=== PATIENT | female | born 1985 | race American Indian/Alaskan Native ===

== ENCOUNTER → 2018-05-31 | Outpatient (CLI) | payer OTHER ==
[~2018-05-31] MED LIST: IBUP600 PO; Lamictal200 MG PO; VENL150ER
[2018-06-02 14:10] LABS: HPV 16 Negative (Negative); HPV 18 Negative (Negative); HPV OTHER HR TYPES Positive (Negative)
[2018-06-03 22:10] LABS: CHLAMYDIA TRACHOMATIS, NAA Negative (Negative); NEISSERIA GONORRHOEAE, NAA Negative (Negative)
== END | disposition home or self-care (01) ==
LOC: LAB SHORT 16:14 → LAB 16:14
PROVIDERS: Obstetrics & Gynecology
DX: Z36.89 Encounter for other specified antenatal screening (principal)
CPT/HCPCS: 87081; 87653

== ENCOUNTER 2018-06-23 14:30 | Inpatient (IN) | payer OTHER ==
[~2018-06-23] VITALS: Ht 160 cm; Wt 83.6 kg
[2018-06-23 17:18] LABS: BASOPHILS ABSOLUTE AUTO 0.03 K/mm3 (0.00-0.23); BASOPHILS PERCENT AUTO 0 % (0-2); EOSINOPHILS ABSOLUTE AUTO 0.06 K/mm3 (0.00-0.68); EOSINOPHILS PERCENT AUTO 0 % (0-6); Hematocrit 33.1 % (33.0-51.0); Hemoglobin 10.4 g/dL (11.5-16.0); IMMATURE GRAN ABSOLUTE AUTO 0.11 K/mm3 (0.00-0.10); IMMATURE GRAN PERCENT AUTO 1 % (0-1); LYMPHOCYTES ABSOLUTE AUTO 1.46 K/mm3 (0.84-5.20); LYMPHOCYTES PERCENT AUTO 9 % (21-46); MONOCYTES ABSOLUTE AUTO 1.03 K/mm3 (0.16-1.47); MONOCYTES PERCENT AUTO 6 % (4-13); Mean Corpuscular HGB 25.7 pg (26.0-34.0); Mean Corpuscular HGB Conc 31.4 g/dL (31.5-36.5); Mean Corpuscular Volume 82 fL (80-100); Mean Platelet Volume 11.3 fL (9.1-12.4); NEUTROPHILS ABSOLUTE AUTO 13.96 K/mm3 (1.96-9.15); NEUTROPHILS PERCENT AUTO 84 % (41-73); NRBC ABSOLUTE 0.02 K/mm3 (0.00-0.02); NRBC Auto 0.1 /100 WBC (0.0-0.2); Platelet Count 305 K/mm3 (150-400); RDW Coefficient Variation 15.4 % (11.7-14.2); RDW Standard Deviation 45.2 fL (35.1-46.3); Red Blood Cell Count 4.04 M/mm3 (3.80-5.20); White Blood Cell Count 16.65 K/mm3 (4.00-11.30)
[2018-06-24 00:11] LABS: Gentamicin, Peak 2.1 ug/mL (4.0-8.0)
[2018-06-24 01:07] LABS: PCO2 Cord - Arterial 68.4 mmHg (40-50); pH Cord - Arterial 7.11 (7.28-7.35)
[2018-06-24 01:08] LABS: PCO2 Cord - Venous 52 mmHg (40-50); PO2 Cord - Venous 13.1 mmHg (28-32); pH Umbilical Cord - Venous 7.22 (7.26-7.35)
[2018-06-24 17:18] LABS: Hematocrit 30.3 % (33.0-51.0); Hemoglobin 9.7 g/dL (11.5-16.0); Mean Corpuscular HGB 26.6 pg (26.0-34.0); Mean Corpuscular Volume 83 fL (80-100); Mean Platelet Volume 10.7 fL (9.1-12.4); NRBC ABSOLUTE 0.02 K/mm3 (0.00-0.02); NRBC Auto 0.1 /100 WBC (0.0-0.2); Platelet Count 316 K/mm3 (150-400); RDW Coefficient Variation 15.9 % (11.7-14.2); RDW Standard Deviation 47.1 fL (35.1-46.3); Red Blood Cell Count 3.65 M/mm3 (3.80-5.20); White Blood Cell Count 21.81 K/mm3 (4.00-11.30)
[2018-06-25 07:26] LABS: Hematocrit 28.3 % (33.0-51.0); Hemoglobin 8.8 g/dL (11.5-16.0); Mean Corpuscular HGB 25.7 pg (26.0-34.0); Mean Corpuscular HGB Conc 31.1 g/dL (31.5-36.5); Mean Corpuscular Volume 83 fL (80-100); Mean Platelet Volume 10.2 fL (9.1-12.4); NRBC ABSOLUTE 0.02 K/mm3 (0.00-0.02); NRBC Auto 0.1 /100 WBC (0.0-0.2); Platelet Count 309 K/mm3 (150-400); RDW Standard Deviation 47.3 fL (35.1-46.3); Red Blood Cell Count 3.43 M/mm3 (3.80-5.20); White Blood Cell Count 19.62 K/mm3 (4.00-11.30)
[2018-06-26] MEDS ORDERED: Percocet 5-3251 EACH PO (10:24)
[2018-06-26] MEDS ORDERED: DOCU100 PO (10:24)
[2018-06-26] MEDS ORDERED: IBUP800 (10:24)
== END 2018-06-26 12:30 | disposition home or self-care (01) | DRG 765 ==
LOC: OBS 14:30 → BC 14:35 → OBS 18:35 → BC 18:37
PROVIDERS: Obstetrics & Gynecology
PROC: 0UT70ZZ Resection of Bilateral Fallopian Tubes, Open Approach (ICD-10-PCS; 2018-06-24)
PROC: 10907ZC Drainage of Amniotic Fluid, Therapeutic from Products of Conception, Via Natural or Artificial Opening (ICD-10-PCS; 2018-06-24)
PROC: 3E0R3BZ Introduction of Anesthetic Agent into Spinal Canal, Percutaneous Approach (ICD-10-PCS; 2018-06-24)
PROC: 10H07YZ Insertion of Other Device into Products of Conception, Via Natural or Artificial Opening (ICD-10-PCS; 2018-06-24)
PROC: 10D00Z1 Extraction of Products of Conception, Low, Open Approach (ICD-10-PCS; principal; 2018-06-24 00:30)
DX: O76 Abnormality in fetal heart rate and rhythm complicating labor and delivery (principal); O41.1230 Chorioamnionitis, third trimester, not applicable or unspecified; Z3A.39 39 weeks gestation of pregnancy; Z37.0 Single live birth; O77.0 Labor and delivery complicated by meconium in amniotic fluid; O99.334 Smoking (tobacco) complicating childbirth; F17.200 Nicotine dependence, unspecified, uncomplicated
CPT/HCPCS: 36415; 51702; 59025; 76819; 80170; 81003; 82565; 82803; 82947; 85025; 85027; 86850; 86900; 86901; 87081; 99214; J0290; J0690; J1580; J1885; J2590; J2765; J7030; J7120

== ENCOUNTER → 2021-07-30 | Outpatient (CLI) | payer OTHER ==
[~2021-07-30] MED LIST changes: +DOCU100 PO; +IBUP800; +Percocet 5-3251 EACH PO
[2021-07-30 15:02] LABS: BASOPHILS ABSOLUTE AUTO 0.04 K/mm3 (0.00-0.23); BASOPHILS PERCENT AUTO 1 % (0-2); EOSINOPHILS ABSOLUTE AUTO 0.12 K/mm3 (0.00-0.68); EOSINOPHILS PERCENT AUTO 2 % (0-6); Hematocrit 44.7 % (33.0-51.0); Hemoglobin 15.1 g/dL (11.5-16.0); IMMATURE GRAN ABSOLUTE AUTO 0.05 K/mm3 (0.00-0.10); IMMATURE GRAN PERCENT AUTO 1 % (0-1); LYMPHOCYTES ABSOLUTE AUTO 1.83 K/mm3 (0.84-5.20); LYMPHOCYTES PERCENT AUTO 24 % (21-46); MONOCYTES ABSOLUTE AUTO 0.58 K/mm3 (0.16-1.47); MONOCYTES PERCENT AUTO 8 % (4-13); Mean Corpuscular HGB 30.3 pg (26.0-34.0); Mean Corpuscular HGB Conc 33.8 g/dL (31.5-36.5); Mean Corpuscular Volume 90 fL (80-100); Mean Platelet Volume 10.6 fL (9.1-12.4); NEUTROPHILS ABSOLUTE AUTO 5.09 K/mm3 (1.96-9.15); NEUTROPHILS PERCENT AUTO 66 % (41-73); Platelet Count 294 K/mm3 (150-400); RDW Coefficient Variation 13.6 % (11.7-14.2); Red Blood Cell Count 4.98 M/mm3 (3.80-5.20); White Blood Cell Count 7.71 K/mm3 (4.00-11.30)
[2021-07-30 15:22] LABS: Alanine Aminotransfer (ALT/SGP 86 U/L (12-78); Albumin, Blood 4.2 g/dL (3.4-5.0); Albumin/Globulin Ratio 0.9 (0.8-1.8); Alk Phos 180 U/L (40-126); Anion Gap 26 mmol/L (6-16); Aspartate Aminotrans (AST/SGOT 41 U/L (12-37); Bilirubin, Total 0.6 mg/dL (0.1-1.0); Blood Urea Nitrogen 8 mg/dL (8-24); Bun/Creatinine Ratio 7.7 (12.0-20.0); CO2, Blood 10 mmol/L (21-32); Calcium, Blood 8.7 mg/dL (8.5-10.1); Chloride, Blood 99 mmol/L (98-108); Creatinine, Blood 1.04 mg/dL (0.40-1.00); Globulin, Blood 4.6 g/dL (2.2-4.0); Glomerular Filtration Rate >60 (60-); Glucose, Blood 425 mg/dL (70-99); Potassium, Blood 3.9 mmol/L (3.5-5.5); Sodium, Blood 135 mmol/L (136-145); Thyroid Stimulating Hormone 1.516 uIU/mL (0.360-4.800); Total Protein, Blood 8.8 g/dL (6.4-8.2)
== END | disposition home or self-care (01) ==
LOC: LAB SHORT 14:57 → LAB 14:57
PROVIDERS: Physician Assistant Medical
DX: R53.83 Other fatigue (principal); R63.1 Polydipsia
CPT/HCPCS: 80053; 83036; 84443; 85025

== ENCOUNTER 2021-08-01 16:47 | Inpatient (IN) | payer OTHER ==
[~2021-08-01] VITALS: Ht 160 cm; Wt 90.3 kg
[~2021-08-01 16:47] MED LIST changes: -HUMALOG KW100 UNIT/1 SC; -INSULANPEN SC; -PHOS-NAK PO
[2021-08-01 17:14] LABS: Hematocrit 43.5 % (33.0-51.0); Mean Corpuscular HGB 30.6 pg (26.0-34.0); Mean Corpuscular HGB Conc 32.2 g/dL (31.5-36.5); Mean Platelet Volume 11.3 fL (9.1-12.4); Platelet Count 235 K/mm3 (150-400); RDW Coefficient Variation 13.9 % (11.7-14.2); RDW Standard Deviation 49.2 fL (35.1-46.3); Red Blood Cell Count 4.57 M/mm3 (3.80-5.20); White Blood Cell Count 12.07 K/mm3 (4.00-11.30)
[2021-08-01 17:15] LABS: Bicarbonate Venous 7.7 mmol/L (24.0-30.0); PCO2 Venous 27.6 mmHg (38-42); PO2 Venous 53.2 mmHg (38-42); pH Blood Venous 6.95 (7.34-7.37)
[2021-08-01 17:42] LABS: Mean Corpuscular Volume 95 fL (80-100)
[2021-08-01 17:44] LABS: Alanine Aminotransfer (ALT/SGP 85 U/L (12-78); Albumin, Blood 3.5 g/dL (3.4-5.0); Albumin/Globulin Ratio 0.9 (0.8-1.8); Alk Phos 174 U/L (50-136); Anion Gap 17 mmol/L (6-16); Aspartate Aminotrans (AST/SGOT 54 U/L (12-37); Bilirubin, Total 0.5 mg/dL (0.1-1.0); Blood Urea Nitrogen 12 mg/dL (8-24); Bun/Creatinine Ratio 17.2 (12.0-20.0); CO2, Blood 6 mmol/L (21-32); Calcium, Blood 7.6 mg/dL (8.5-10.1); Chloride, Blood 112 mmol/L (98-108); Globulin, Blood 4.1 g/dL (2.2-4.0); Glomerular Filtration Rate >60 (60-); Glucose, Blood 628 mg/dL (70-99); Sodium, Blood 135 mmol/L (136-145); Total Protein, Blood 7.6 g/dL (6.4-8.2)
[2021-08-01 17:49] LABS: BAND PERCENT MAN 5 % (0-8); BASOPHILS PERCENT MAN 0 % (0-2); EOSINOPHILS PERCENT MAN 0 % (0-6); LYMPHOCYTES ABSOLUTE MAN 0.72 K/mm3 (0.84-5.20); LYMPHOCYTES PERCENT MAN 6 % (21-46); METAMYELOCYTE ABSOLUTE MAN 0.12 K/mm3 (0.00-0.00); METAMYELOCYTE PERCENT MAN 1 % (0-0); MONOCYTES ABSOLUTE MAN 0.36 K/mm3 (0.16-1.47); MONOCYTES PERCENT MAN 3 % (4-13); NEUTROPHILS ABSOLUTE MAN 10.86 K/mm3 (1.96-9.15); SEG NEUTROPHILS PERCENT MAN 85 % (41-73); TOTAL CELLS COUNTED 100
[2021-08-01 19:13] LABS: Source, Urine Clean Catch
[2021-08-01 19:47] LABS: Appearance, Urine Hazy (Clear); Bilirubin, Urine Neg (Neg); Blood, Urine 3+ (Neg); Color, Urine Yellow (P-Yellow); Glucose Qualitative, Urine 4+ (Neg); Ketones, Urine 4+ (Neg); Leukocyte Esterase, Urine 2+ (Neg); Nitrite, Urine Neg (Neg); Protein, Urine 2+ (Neg); Specific Gravity, Urine 1.015 (1.003-1.022); Urobilinogen, Urine NORM (Normal)
[2021-08-01 20:13] LABS: Bacteria Mod /hpf; Granular Casts 0-2 /lpf (0); Squamous Epithelial Cells Few /hpf (Few); Yeast/Fungi Urine Few /hpf
--- NOTE | 2021-08-01 21:18 | NUR ---
ADMISSION/SHIFT SUMMARY 2017- REPORT RECEIVED FROM RADHA MUNIZ FROM ER. PT TO BE ADMITTED INTO ICU-3. 2029- PT ADMITTED INTO ICU-3. INSULIN GTT RUNNING AT 5UNITS/HR AND 20MEQ POTASSIUM RUNNING PIGGYBACK AT @50ML/HR. NS @150ML/HR ON STANDBY. PT ALERT AND ORIENTED X4. DENIES ANY PAIN OR DISTRESS. RESPIRATIONS EVEN AND UNLABORED. ST ON MONITOR. SEE ADMISSION ASSESSMENT.
[2021-08-01 21:53] LABS: Anion Gap 14 mmol/L (6-16); Blood Urea Nitrogen 9 mg/dL (8-24); Bun/Creatinine Ratio 14.4 (12.0-20.0); CO2, Blood 8 mmol/L (21-32); Calcium, Blood 7.7 mg/dL (8.5-10.1); Chloride, Blood 116 mmol/L (98-108); Creatinine, Blood 0.63 mg/dL (0.40-1.00); Glomerular Filtration Rate >60 (60-); Glucose, Blood 364 mg/dL (70-99); Potassium, Blood 4.5 mmol/L (3.5-5.5); Sodium, Blood 138 mmol/L (136-145)
[2021-08-01 22:37] LABS: SARS-Cov-2 (COVID-19) PCR, MMC NEGATIVE (NEGATIVE)
--- NOTE | 2021-08-02 06:05 | NUR ---
SHIFT SUMMARY PT ALERT AND ORIENTED X4. NO ACUTE DISTRESS NOTED THROUGH THE SHIFT. PT REMAINS ON INSULIN DRIP @ 9UNITS/HR. BLOOD SUGARS RANGE BETWEEN 210-340. 210 IS THE LAST BLOOD SUGAR @ 0600. DR. HADDAD NOTIFIED WHEN BS <250 AND D51/2 NS @ 150ML/HR STARTED. PT VOIDED TWICE USING TOILET. NO ACUTE EVENTS DURING THIS SHIFT. REPORT TO BE GIVEN TO DAY SHIFT RN.
[2021-08-02 06:22] LABS: BASOPHILS ABSOLUTE AUTO 0.02 K/mm3 (0.00-0.23); BASOPHILS PERCENT AUTO 0 % (0-2); EOSINOPHILS ABSOLUTE AUTO 0.05 K/mm3 (0.00-0.68); EOSINOPHILS PERCENT AUTO 1 % (0-6); Hematocrit 36.3 % (33.0-51.0); Hemoglobin 12.5 g/dL (11.5-16.0); IMMATURE GRAN ABSOLUTE AUTO 0.27 K/mm3 (0.00-0.10); IMMATURE GRAN PERCENT AUTO 4 % (0-1); LYMPHOCYTES PERCENT AUTO 13 % (21-46); MONOCYTES ABSOLUTE AUTO 0.57 K/mm3 (0.16-1.47); MONOCYTES PERCENT AUTO 8 % (4-13); Mean Corpuscular HGB 30.8 pg (26.0-34.0); Mean Corpuscular HGB Conc 34.4 g/dL (31.5-36.5); Mean Platelet Volume 10.9 fL (9.1-12.4); NEUTROPHILS ABSOLUTE AUTO 5.65 K/mm3 (1.96-9.15); NEUTROPHILS PERCENT AUTO 75 % (41-73); Platelet Count 201 K/mm3 (150-400); RDW Coefficient Variation 14.1 % (11.7-14.2); RDW Standard Deviation 46.2 fL (35.1-46.3); Red Blood Cell Count 4.06 M/mm3 (3.80-5.20); White Blood Cell Count 7.56 K/mm3 (4.00-11.30)
[2021-08-02 06:23] LABS: Mean Corpuscular Volume 89 fL (80-100)
[2021-08-02 06:39] LABS: Anion Gap 11 mmol/L (6-16); Blood Urea Nitrogen 6 mg/dL (8-24); Bun/Creatinine Ratio 8.1 (12.0-20.0); CO2, Blood 10 mmol/L (21-32); Chloride, Blood 121 mmol/L (98-108); Creatinine, Blood 0.74 mg/dL (0.40-1.00); Glomerular Filtration Rate >60 (60-); Glucose, Blood 238 mg/dL (70-99); Potassium, Blood 2.6 mmol/L (3.5-5.5); Sodium, Blood 142 mmol/L (136-145)
--- NOTE | 2021-08-02 06:50 | NUR ---
DR. HADDAD NOTIFIED OF PT'S MORNING LABS, POTASSIUM (2.6). VERBAL OREDERS RECIEVED FOR 60MEQ IV KCL.
--- NOTE | 2021-08-02 08:03 | NUR ---
Assumed care of pt at 0700. Report received from Stacy MUNIZ. Insulin per flowsheet. Pt out of bed to use toilet. Tolerated activity well. Dr Lutz in to see patient. States plan to transition patient to subcutaneous insulin and downgrade to medical floor status later in day.
[2021-08-02 09:21] LABS: Anion Gap 10 mmol/L (6-16); Blood Urea Nitrogen 6 mg/dL (8-24); Bun/Creatinine Ratio 8.1 (12.0-20.0); CO2, Blood 12 mmol/L (21-32); Chloride, Blood 119 mmol/L (98-108); Creatinine, Blood 0.74 mg/dL (0.40-1.00); Glomerular Filtration Rate >60 (60-); Glucose, Blood 218 mg/dL (70-99); Potassium, Blood 2.7 mmol/L (3.5-5.5); Sodium, Blood 141 mmol/L (136-145)
[2021-08-02 12:51] LABS: Anion Gap 10 mmol/L (6-16); Blood Urea Nitrogen 5 mg/dL (8-24); Bun/Creatinine Ratio 7.4 (12.0-20.0); CO2, Blood 12 mmol/L (21-32); Chloride, Blood 118 mmol/L (98-108); Creatinine, Blood 0.68 mg/dL (0.40-1.00); Glomerular Filtration Rate >60 (60-); Glucose, Blood 195 mg/dL (70-99); Potassium, Blood 2.8 mmol/L (3.5-5.5); Sodium, Blood 140 mmol/L (136-145)
--- NOTE | 2021-08-02 13:55 | NUR ---
Call placed to Dr Lutz to discuss pt's hypokalemia and mention that previously ordered 60 meq KCl has finished. Plan to recheck potassium at 1415.
--- NOTE | 2021-08-02 18:01 | NUR ---
SUMMARY Pt is now medical floor status without telemetry. Plan for patient to transfer to room 333. Awaiting giving report to medical floor nurse Neuro: A&O x 4. Answers questions. Follows commands. Verbalizes needs. Pleasant and cooperative with care. Currently independent in room. Performing ADLs independently. Respiratory: Unremarkable. Lungs clear. Cardiac: Previously sinus rhythm per monitor, however pt no longer requires telemetry. GI: Tolerating ADA diet well. Inuslin drip at D5 1/2 NS turned off at 1700. : Ambulates to in room toilet. Skin: Unremarkable. Psychosocial: No apparent problems. Visited with daughter today. Telephone report given to Lynn MUNIZ. Pt to depart to medical floor soon.
[2021-08-02 22:10] LABS: Anion Gap 9 mmol/L (6-16); Blood Urea Nitrogen 8 mg/dL (8-24); Bun/Creatinine Ratio 10.8 (12.0-20.0); CO2, Blood 14 mmol/L (21-32); Calcium, Blood 7.9 mg/dL (8.5-10.1); Chloride, Blood 115 mmol/L (98-108); Creatinine, Blood 0.74 mg/dL (0.40-1.00); Glomerular Filtration Rate >60 (60-); Glucose, Blood 340 mg/dL (70-99); Potassium, Blood 3.2 mmol/L (3.5-5.5); Sodium, Blood 138 mmol/L (136-145)
--- NOTE | 2021-08-03 03:47 | NUR ---
SHIFT SUMMARY NO ACUTE CHANGES THIS EVENING. Q 4 CBG'S. GLUCOSE LEVELS ELEVATED IN THE 300'S. COVERED WITH CORRECTION SCALE. NO COMPLAINTS OF PAIN. PT DID REPORT HEARTBURN SO ORDER OBTAINED FOR MAALOX EXTRA STRENGTH WHICH WAS EFFECTIVE. PT AWAKE MUCH OF THE EVENING. REPORTING FATIGUE BUT OTHERWISE FEELING BETTER. VITAL SIGNS STABLE. WILL CONTINUE TO MONITOR.
[2021-08-03 07:21] LABS: Albumin, Blood 2.9 g/dL (3.4-5.0); Anion Gap 8 mmol/L (6-16); Blood Urea Nitrogen 5 mg/dL (8-24); Bun/Creatinine Ratio 7.5 (12.0-20.0); CO2, Blood 17 mmol/L (21-32); Calcium, Blood 8.1 mg/dL (8.5-10.1); Chloride, Blood 113 mmol/L (98-108); Creatinine, Blood 0.66 mg/dL (0.40-1.00); Glomerular Filtration Rate >60 (60-); Glucose, Blood 289 mg/dL (70-99); Magnesium, Blood 2.3 mg/dL (1.6-2.4); Potassium, Blood 3.1 mmol/L (3.5-5.5); Sodium, Blood 138 mmol/L (136-145)
[2021-08-03 07:24] LABS: Phosphorus, Blood 0.2 mg/dL (2.5-4.9)
--- NOTE | 2021-08-03 16:17 | NUR ---
SHIFT SUMMARY PATIENT DENIES PAIN, NAUSEA, AND SHORTNESS OF BREATH. PATIENT IS INDEPENDENT IN ROOM. PATIENT HAD A CRITICAL PHOS LEVEL THIS MORNING OF 0.2. DR. CARRASCO NOTIFIED AND A REDRAW WAS ORDERED. REDRAW WAS 0.3. P-PHOS IV WAS ORDERED. CONTINUED EDUCATION ABOUT GLUCOSE LEVELS AND INSULIN ADMINISTRATION. PATIENT IS MOTIVATED TO LEARN. REDRAW FOR PHOS WAS ORDERED, RESULT WAS 0.8. DR. ACRRASCO NOTIFIED AND P-PHOS IV AND NEUTRA-PHOS POWDER ORDERED. PATIENT IS EATING AND DRINKING WELL. PATIENT HAD A VISITOR IN THE AFTERNOON. PATIENT IS PLEASANT AND COOPERATIVE WITH CARE.
[2021-08-04 05:44] LABS: Albumin, Blood 2.9 g/dL (3.4-5.0); Anion Gap 7 mmol/L (6-16); Blood Urea Nitrogen 9 mg/dL (8-24); Bun/Creatinine Ratio 13.4 (12.0-20.0); CO2, Blood 23 mmol/L (21-32); Calcium, Blood 8.3 mg/dL (8.5-10.1); Chloride, Blood 106 mmol/L (98-108); Creatinine, Blood 0.67 mg/dL (0.40-1.00); Glomerular Filtration Rate >60 (60-); Glucose, Blood 363 mg/dL (70-99); Magnesium, Blood 2.4 mg/dL (1.6-2.4); Phosphorus, Blood 2.1 mg/dL (2.5-4.9); Potassium, Blood 3.1 mmol/L (3.5-5.5); Sodium, Blood 136 mmol/L (136-145)
--- NOTE | 2021-08-04 07:39 | NUR ---
SHIFT SUMMARY PT IS A 35 Y/O FEMALE, ADMITTED FOR DKA. SHE IS A&O X 4, INDEPENDENT IN THE ROOM. NO C/O ACUTE PAIN, NAUSEA OR SOB. VITAL SIGNS STABLE. PT'S BLOOD SUGAR WAS ELEVATED DURING THE NIGHT IN THE 300-400S. NO OTHER ACUTE CHANGES NOTED DURING THE NIGHT. REPORT GIVEN TO ONCOMING RN.
--- NOTE | 2021-08-04 16:56 | NUR ---
SHIFT SUMMARY PATIENT IS ALERT AND ORIENTED X4 AND COOPERATIVE WITH CARE. THE PATIENT IS INDEPENDENT TO THE BATHROOM. THEY CALL APPROPRIATELY. CBG LEVELS REMAINED IN THE 200'S THIS SHIFT. PATIENT HAS BEEN RECEIVING 15 UNITS TID OF HUMALOG, AND SLIDING SCALE FOR COVERAGE. NO ACUTE CHANGES THIS SHIFT. WILL CONTINUE TO MONITOR UNTIL SHIFT REPORT IS GIVEN TO ONCOMING NURSE.
[2021-08-05 05:20] LABS: Albumin, Blood 2.8 g/dL (3.4-5.0); Anion Gap 10 mmol/L (6-16); Blood Urea Nitrogen 6 mg/dL (8-24); Bun/Creatinine Ratio 10.2 (12.0-20.0); CO2, Blood 23 mmol/L (21-32); Calcium, Blood 8.2 mg/dL (8.5-10.1); Chloride, Blood 105 mmol/L (98-108); Creatinine, Blood 0.59 mg/dL (0.40-1.00); Glomerular Filtration Rate >60 (60-); Glucose, Blood 242 mg/dL (70-99); Magnesium, Blood 2.2 mg/dL (1.6-2.4); Phosphorus, Blood 3.5 mg/dL (2.5-4.9); Potassium, Blood 2.9 mmol/L (3.5-5.5); Sodium, Blood 138 mmol/L (136-145)
--- NOTE | 2021-08-05 05:30 | NUR ---
CABIN AGENT SUMMARY HAS BEEN RESTING QUIETLY WITH OCCASIONAL INTERRUPTION. CBG'S MONITORED AND COVERED WITH INSULIN - SEE MAR FOR DETAILS. NO C/O VOICED. CALL LIGHT IN REACH
--- NOTE | 2021-08-05 13:38 | NUR ---
Per chart review, pt. not yet medically stable for discharge. Anticipate needs at time of discharge to include: Assistance with insulin, potential F/U appt. with Dr. Montejo, hospital F/U within 5-7 days post discharge.
[2021-08-05 17:21] LABS: Magnesium, Blood 2.2 mg/dL (1.6-2.4); Phosphorus, Blood 3.1 mg/dL (2.5-4.9); Potassium, Blood 3.8 mmol/L (3.5-5.5)
--- NOTE | 2021-08-05 17:21 | NUR ---
SHIFT SUMMARY PATIENT DENIES PAIN, NAUSEA, AND SHORTNESS OF BREATH. PATIENT IS INDEPENDENT IN ROOM. PATIENT IS EATING AND DRINKING WELL. PATIENTS POTASSIUM WAS 2.9 THIS MORNING. ORDERS PLACED FOR PO POTASSIUM. LABS REDRAWN. POTASSIUM 3.8. PATIENT HAS BEEN SELF ADMINISTERING HER INSULIN THIS SHIFT WITH SUPERVISION. DID A LOT OF EDUCATION ABOUT INSULIN AND ADMINISTERING. PATIENT TOLERATED WELL. PATIENT DID WELL WITH ADMINISTRATION. PATIENT BLOOD SUGARS HAVE BEEN IN THE 200'S ALL SHIFT. PATIENT IS PLEASANT AND COOPERATIVE WITH CARE. PATIENT MOTIVATED TO GO HOME. PATIENT MOTHER VISITED IN AFTERNOON.
--- NOTE | 2021-08-06 05:40 | NUR ---
EXTENSION SPECIALIST SUMMARY NOW GIVING OWN INSULIN WITH SUPERVISION OF RN. HAS BEEN RESTING QUIETLY WITH FEW INTERRUPTIONS SINCE HS. NO C/O VOICED THIS SHIFT. AFFECT CHEERFUL WHEN CONVERSING WITH STAFF. CALL LIGHT IN REACH
[2021-08-06 07:07] LABS: Albumin, Blood 2.9 g/dL (3.4-5.0); Anion Gap 7 mmol/L (6-16); Blood Urea Nitrogen 8 mg/dL (8-24); Bun/Creatinine Ratio 12.5 (12.0-20.0); CO2, Blood 27 mmol/L (21-32); Calcium, Blood 8.8 mg/dL (8.5-10.1); Chloride, Blood 104 mmol/L (98-108); Creatinine, Blood 0.64 mg/dL (0.40-1.00); Glomerular Filtration Rate >60 (60-); Glucose, Blood 262 mg/dL (70-99); Magnesium, Blood 2.3 mg/dL (1.6-2.4); Phosphorus, Blood 4.2 mg/dL (2.5-4.9); Potassium, Blood 3.4 mmol/L (3.5-5.5); Sodium, Blood 138 mmol/L (136-145)
--- NOTE | 2021-08-06 10:11 | NUR ---
Per Dr. Meyers, pt. likely to D/C today. Pt. has strong family support system. Insurance to cover cost of medications. Pt. will be provided with [facility] direct traige line to contact if unable to obtain insulin for any reason. We have samples that could be provided if needed. Pt. scheduled for hospital F/U appt. on 08/12/21 at [address] Izaguirre. Pt. denied any concerns for safety at home or barriers to discharge. Provided with discharge letter and appt. time/date.
[2021-08-06] MEDS ORDERED: INSULANPEN SC (12:28)
[2021-08-06] MEDS ORDERED: HUMALOG KW100 UNIT/1 SC (12:29)
[2021-08-06] MEDS ORDERED: PHOS-NAK PO (12:34)
--- NOTE | 2021-08-06 13:14 | NUR ---
DISCHARGE PATIENT TRANSPORTED VIA WHEELCHAIR TO PRIVATE VEHICLE. DISCHARGE INSTRUCTIONS EXPLAINED TO PATIENT. PATIENT STATED UNDERSTANDING. INSULIN ADMINSTRATION EDUCATION DONE. PATIENT STATED UNDERSTANDING. PACKET SENT WITH PATIENT. BELONGINGS SENT WITH PATIENT. IV REMOVED WITHOUT DIFFICULTY. MEDICATIONS FAXED TO PERFERRED PHARMACY. [facility] SCHEDULED FOLLOW UP.
== END 2021-08-06 13:08 | disposition home or self-care (01) | DRG 637 ==
LOC: ER 16:47 → MEDS 19:45 → ICUE 19:45 → ICUW 19:45 → ICUE 20:32 → MEDS 08-02 18:40
PROVIDERS: Emergency Medicine; Family Medicine; Internal Medicine; Student in an Organized Health Care Education/Training Program; ADMIT Family Medicine
DX: E11.10 Type 2 diabetes mellitus with ketoacidosis without coma (principal); G93.41 Metabolic encephalopathy; E87.1 Hypo-osmolality and hyponatremia; N39.0 Urinary tract infection, site not specified; Z20.822 Contact with and (suspected) exposure to COVID-19; E83.39 Other disorders of phosphorus metabolism; E87.6 Hypokalemia; F41.9 Anxiety disorder, unspecified; E28.2 Polycystic ovarian syndrome; F17.210 Nicotine dependence, cigarettes, uncomplicated; J45.909 Unspecified asthma, uncomplicated; Z98.891 History of uterine scar from previous surgery; Z79.84 Long term (current) use of oral hypoglycemic drugs; Z79.899 Other long term (current) drug therapy
CPT/HCPCS: 36415; 71045; 80048; 80053; 80069; 81001; 82803; 82947; 83605; 83735; 84100; 84132; 84484; 85025; 85379; 87040; 87086; 93005; 93010; 96365; 96366; 96375; 99285-25; A9270; J0696; J1650; J1815; J3480; J7030; J7042; J7050; J7060; J7120; U0004

== ENCOUNTER → 2021-08-01 | Outpatient (CLI) | payer OTHER ==
[~2021-08-01] MED LIST changes: +HUMALOG KW100 UNIT/1 SC; +INSULANPEN SC; +PHOS-NAK PO; -VENL150ER; +VENL150ER PO
[2021-08-01 16:04] LABS: Alanine Aminotransfer (ALT/SGP 104 U/L (12-78); Albumin, Blood 4.4 g/dL (3.4-5.0); Albumin/Globulin Ratio 0.9 (0.8-1.8); Alk Phos 207 U/L (40-126); Aspartate Aminotrans (AST/SGOT 59 U/L (12-37); Bilirubin, Total 0.6 mg/dL (0.1-1.0); Blood Urea Nitrogen 12 mg/dL (8-24); Calcium, Blood 8.6 mg/dL (8.5-10.1); Chloride, Blood 97 mmol/L (98-108); Globulin, Blood 4.9 g/dL (2.2-4.0); Glomerular Filtration Rate 40 (60-); Potassium, Blood 3.7 mmol/L (3.5-5.5); Sodium, Blood 131 mmol/L (136-145); Total Protein, Blood 9.3 g/dL (6.4-8.2)
[2021-08-01 16:14] LABS: Anion Gap 29 mmol/L (6-16); Troponin I <0.017 ng/mL (0.000-0.040)
[2021-08-01 16:15] LABS: CO2, Blood 5 mmol/L (21-32)
[2021-08-01 16:16] LABS: Glucose, Blood 778 mg/dL (70-99)
== END | disposition home or self-care (01) ==
LOC: LAB 15:29 → LAB SHORT 15:29
PROVIDERS: Chiropractor
DX: R06.00 Dyspnea, unspecified (principal)
CPT/HCPCS: 80053; 84484; 85379